=== PATIENT | female | born 1945 | race Caucasian/White ===

== ENCOUNTER 2021-05-31 13:29 | Emergency (ER) | payer OTHER, MEDICARE, SELFPAY ==
--- NOTE | ~2021-05-31 | CT_ITS ---
EXAMINATION: CT facial bones wo con DATE: 05/31/2021 16:24 INDICATION: Dog bite to forehead. TECHNIQUE: Computed tomography (CT) of the facial bones and maxillofacial region was performed withou t intravenous contrast. Automated exposure control and iterative reconstruction technique were employ ed. The dose-length product was 266.63 mGy-cm. COMPARISON: None. FINDINGS: There is a laceration of the right frontal lateral scalp with tracking of gas in the subcut aneous fat and right temporalis muscle inferiorly to the right cheek and anteriorly to the right galina orbital region. There are likely changes of ocular lens replacement surgeries. There is mild mucosal thickening in the paranasal sinuses. There is leftward deviation of the nasal septum. No fracture. IMPRESSION: 1. Laceration of the right frontal lateral scalp with soft tissue gas. Reviewed, dictated and finalized at location A.
[2021-05-31 13:36] VITALS: BP 135/66; PULSE 79; RESP 16; O2SAT 97
[2021-05-31 15:00] VITALS: BP 153/89; PULSE 87; RESP 16; O2SAT 100
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
[2021-05-31 17:18] VITALS: BP 153/80; PULSE 77; RESP 18; O2SAT 100
== END 2021-05-31 17:26 | disposition home or self-care (01) ==
PROVIDERS: Emergency Provider Emergency Medicine
DX: S01.81XA Laceration without foreign body of other part of head, initial encounter (principal); W54.0XXA Bitten by dog, initial encounter
CPT/HCPCS: 70486; 99284